=== PATIENT | male | born 1955 | race Hispanic/Latino ===

== ENCOUNTER 2019-02-04 06:05 | Outpatient (CLI) | payer BC ==
[2019-02-04 12:46] LABS: Hemoglobin 16.3 g/dL (14.0-18.0); Mean Corpuscular HGB CONC 34.1 g/dL (32.0-36.0); Mean Corpuscular Hemoglobin 32.3 pg (27.0-31.0); Mean Corpuscular Volume 94.9 fL (78.0-98.0); Mean Platelet Volume 8.2 fL (7.4-10.4); Platelet Count 206 thou/uL (130-400); RBC Distribution Width 11.4 % (11.5-14.5); Red Blood Cell (RBC) Count 5.05 mill/uL (4.70-6.10); White Blood Cell (WBC) Count 5.1 thou/uL (4.8-10.8)
[2019-02-04 12:49] LABS: Bacteria/HPF None Seen HPF (None Seen); Bilirubin Negative (Negative); Blood, Urine Negative (Negative); Clarity Clear (Clear); Glucose, Urine (Dipstick) Normal (Negative); Leukocyte Negative Leu/uL (Negative); Nitrite Negative (Negative); Protein, Urine (Dipstick) Negative (Neg-Trace); RBC/HPF 0-3 HPF (0-3); Squamous Epithelial None Seen HPF (0-3); Urobilinogen Normal mg/dL (Less than 2); WBC/HPF 0-3 HPF (0-3)
[2019-02-04 13:15] LABS: Anion Gap 13 mmol/L (10-20); BUN (Urea Nitrogen) 10 mg/dL (8.4-25.7); Calc. Creatinine Clearance 0 mL/min (70-130); Calcium 9.4 mg/dL (7.8-10.44); Carbon Dioxide 27 mmol/L (23-31); Chloride 103 mmol/L (98-107); Estimated GFR-MDRD 86; Glucose 91 mg/dL (80-115); Potassium 4.1 mmol/L (3.5-5.1); Sodium 139 mmol/L (136-145)
--- NOTE | 2019-02-06 18:47 | EKG ---
Test Reason : Blood Pressure : / mmHG Vent. Rate : 058 BPM Atrial Rate : 084 BPM P-R Int : 194 ms QRS Dur : 084 ms QT Int : 444 ms P-R-T Axes : 047 037 -12 degrees QTc Int : 435 ms Sinus rhythm with marked sinus arrhythmia Otherwise normal ECG No previous ECGs available Confirmed by DR. Christin GIL ([id number]) on 02/06/2019 6:47:01 PM Referred By: [email or web address] Confirmed By:DR. Christin GIL
== END 2019-02-04 06:06 | disposition home or self-care (01) ==
LOC: LABBT 06:05
PROVIDERS: ATTEND Urology
DX: Z01.818 Encounter for other preprocedural examination (principal); N40.1 Benign prostatic hyperplasia with lower urinary tract symptoms
CPT/HCPCS: 80048; 81001; 85027; 87086; 93005; 93010

== ENCOUNTER 2019-03-05 06:29 | Day surgery (SDC) | payer BC ==
[2019-03-05] MEDS ORDERED: Levofloxacin 500 mg/D5W 100 ml Premix Bag ONE (06:51)
[2019-03-05] MEDS ORDERED: Fentanyl 100 MCG/2 ML VIAL ONE (07:27)
[2019-03-05] MEDS ORDERED: Propofol 500 MG/50 ML VIAL ONE (07:36)
[2019-03-05] MEDS ORDERED: Ketorolac Tromethamine 30 MG/ML VIAL ONE (08:55)
[2019-03-05] MEDS ORDERED: Oxybutynin 5 MG TAB ONE (08:55)
[2019-03-05] MEDS ORDERED: Phenazopyridine HCl 97.5 MG TABLET ONE ×2 (08:56)
[2019-03-05] MEDS ORDERED: HYDROcodone/Acetaminophen 5/325 mg Tablet ONE (09:10)
[2019-03-05] MEDS ORDERED: PHENYLEPHRINE-NS 100 MCG/ML 10 ML SYRINGE ONE (09:37)
[2019-03-05] MEDS ORDERED: PROPOFOL 200 MG/20 ML VIAL ONE (09:37)
--- NOTE | 2019-03-05 10:07 | OP ---
DATE OF PROCEDURE: 03/05/2019 PREOPERATIVE DIAGNOSIS: Enlarged prostate with lower urinary tract symptoms. POSTOPERATIVE DIAGNOSIS: Enlarged prostate with lower urinary tract symptoms. PROCEDURE PERFORMED: Transurethral implant of UroLift device. ANESTHESIA: TIVA. BLOOD LOSS: 50 mL. COMPLICATIONS: None. DRAINS: A 20-Macanese Rubio catheter with 30 mL in balloon. DESCRIPTION OF PROCEDURE: After informed consent, the patient was taken to the operating room, transferred to the table on his own power. Anesthesia was established. A time-out was performed, ensuring correct patient, site, and procedure. Preoperative antibiotics were administered. He was prepped and draped in the lithotomy position. A 20-Macanese cystoscope was inserted into the bladder noting coapting lateral lobes, left greater than right. The bladder was then inspected, noting moderate trabeculation with no mucosal abnormalities. The cystoscopy bridges were placed with UroLift delivery device. The first treatment site was the patient's left side approximately 2 cm distal to the bladder neck. The distal tip of the delivery device was then angled laterally approximately 20 degrees of this position to compress the lateral lobe. The trigger was pulled, thereby deploying a needle containing the implant through the prostate. The needle was then retracted, allowing one end of the implant to be delivered to the capsular surface of the prostate. The implant was then tensioned to assure capsular seating and removal of slack monofilament. The device was then angled back toward midline and slowly advance proximally about 3 to 4 mm until cystoscopic verification of the monofilament being centered in the delivery bay. The urethral end piece was then affixed to the monofilament, thereby tailoring the size of the implant. Excess cement was then severed. The delivery device was then readvanced into the bladder. The delivery device was replaced with cystoscope and bridge and the implant location and opening effect were confirmed cystoscopically. The same procedure was then repeated on the right side near the bladder neck to point the second implant. Two additional implants of the third and fourth were delivered just proximal to the verumontanum, again one on the right and one on the left side of the prostate following the same technique. Cystoscopy then revealed a persistent area of obstruction, and tumor implants were delivered in the mid prostate on the left side. After the sixth implant was placed, the final cystoscopic view revealed no persistent obstruction. Total number of implants used, 6. A final cystoscopy was conducted first to inspect the location set of each implant and second to confirm the presence of a continuous anterior channel through the prostatic urethra with the irrigation flow turned off. I elected to place a 20-Macanese catheter and instilled 30 mL in the balloon. This was connected to leg bag. The patient was then awoken from anesthesia, transferred back to his hospital bed and taken to PACU in stable condition, where he will discharge home upon recovery. IMPLANT LOCATION SUMMARY: 1. Left proximal prostatic urethra. 2. Right proximal prostatic urethra. 3. Left distal prostatic urethra. 4. Right distal prostatic urethra. 5. Left mid prostate. 6. Left mid prostate. CRITERIA: Met. No active UTI. Conservative management failed, and surgical intervention is indicated. IPSS 34/6. Prostate volume 76.9. Job ID: [id number]
== END 2019-03-05 10:20 | disposition home or self-care (01) ==
LOC: SDC 06:29
PROVIDERS: ATTEND Urology
PROC: 0T7D8DZ Dilation of Urethra with Intraluminal Device, Via Natural or Artificial Opening Endoscopic (ICD-10-PCS; principal; 2019-03-05)
DX: N40.1 Benign prostatic hyperplasia with lower urinary tract symptoms (principal); I10 Essential (primary) hypertension; Z79.899 Other long term (current) drug therapy; Z88.0 Allergy status to penicillin
CPT/HCPCS: C1889; J1885; J1956; J2704; J3010